=== PATIENT | female | born 1980 | race Caucasian/White ===

== ENCOUNTER 2016-09-15 18:56 | Emergency (ER) | payer OTHER ==
[~2016-09-15] VITALS: Ht 160 cm; Wt 127.0 kg
[~2016-09-15 18:56] MED LIST: IBUP-232 PO; LISI-586 PO
[2016-09-15 18:58] VITALS: BP 178/98; PULSE 108; RESP 14; TEMP 98; O2SAT 96
[2016-09-15] MEDS ORDERED: LISI20TA3 PO (19:33)
[2016-09-15] MEDS ORDERED: IBUP200T2 PO (19:33)
[2016-09-15] MEDS ORDERED: AMOX500T PO (19:38)
--- NOTE | 2016-09-15 19:42 | PD ---
HPI Chief Complaint: Oral / Dental Pain or Problem Time Seen by Provider: 19:39 Travel History International Travel<30 days: No Contact w/Intl Traveler<30days: No Traveled to known affect area: No History of Present Illness HPI 36-year-old white female presents to emergency Department with complaints of right upper maxillary dental pain. She states that she has had pain now for the past 2 days. She is taking ibuprofen without relief. She has had no fever chills. No ear pain or sore throat. No shortness of breath or wheezing. No vomiting. Some nausea. PFSH Past Medical History Narrative Medical Hypertension. Denies diabetes Cardiovascular Problems: Yes (HTN) Diminished Hearing: No GERD: Yes Hypertension: Yes Immunizations Current: Yes Tetanus Vaccination: < 5 Years Influenza Vaccination: No ?: Not LMP: A YR AGO Past Surgical History Section: Yes (2011) Social History Alcohol Use: No Tobacco Use: No Substance Use: No Allergies-Medications (Allergen,Severity, Reaction): Coded Allergies: No Known Allergies (Unverified , 09/15/16) Reported Meds & Prescriptions Reported Meds & Active Scripts Active Amoxicillin 500 Mg Tab 1,000 Mg PO BID Reported Ibuprofen 200 Mg Tab 200 Mg PO Q4H PRN Lisinopril-Hctz 20-25 Mg Tab 1 Tab PO DAILY Review of Systems Except as stated in HPI: all other systems reviewed are Neg Physical Exam Narrative GENERAL: Well-developed, well-nourished in no acute distress. Nontoxic appearing. HEAD: Normocephalic, atraumatic. EYES: Pupils equal round and reactive. Extraocular motions intact. No scleral icterus. No injection or drainage. ENT: TMs clear without erythema. The external auditory canals clear. Nose: clear . Posterior pharynx is pink and moist. No tonsillar edema or exudate. Uvula midline. Airway patent. The patient has diffuse periodontal disease. She has multiple dental caries. She points to right upper maxilla and the area of tooth #1, 2, 3. These are decayed to the gumline. There is gingival erythema and edema. Tenderness to percussion. No facial cellulitis. NECK: Trachea midline.Supple, nontender, moves head freely. No central bony tenderness or spasm. CARDIOVASCULAR: Regular rate and rhythm without murmurs, gallops, or rubs. RESPIRATORY: Clear to auscultation. Breath sounds equal bilaterally. No wheezes , rales, or rhonchi. GASTROINTESTINAL: Abdomen soft, non-tender, nondistended. No hepato-splenomegaly , or palpable masses. No guarding. EXTREMITIES: No clubbing, cyanosis, or edema. No joint tenderness, effusion, or edema noted. BACK: Nontender without deformity or crepitance. No flank tenderness. Data Data Last Documented VS Vital Signs Date Time Temp Pulse Resp B/P Pulse Ox O2 Delivery O2 Flow Rate FiO2 09/15/16 18:58 98.0 108 14 178/98 96 Room Air MDM Medical Decision Making Medical Screen Exam Complete: Yes Emergency Medical Condition: Yes Medical Record Reviewed: Yes Differential Diagnosis MDM: Moderate Differential diagnoses: Dental abscess, dental caries, osteitis, cellulitis Narrative Course Patient's given amoxicillin 500 and Lortab 5 milligram by mouth. This is dentalgia, dental caries Diagnosis Primary Impression: Dentalgia Additional Impression: Dental caries Patient Instructions: Narcotic given in the ED, General Instructions Additional Instructions: Rest. Saltwater gargles. [place] oil on cotton balls. 3 Advil every 6 hours. Amoxicillin. follow-up with a dentist as soon as possible. And return to the ER if any problems. Med/Other Pt SpecificInfo: Prescription(s) given Scripts Amoxicillin 500 Mg Tab1,000 Mg PO BID #40 TAB Prov:Abiodun Alberto MD 09/15/16 Disposition: 01 DISCHARGE HOME Condition: Stable Amor Salcedo Sep 15, 2016 19:42
[2016-09-15] MEDS ORDERED: AMOXICILLIN (TRIHYDRATE) 500 MG CAP PO ONE (19:45)
[2016-09-15] MEDS ORDERED: ACETAMINOPHEN/HYDROcodone 325 MG/5 MG TAB PO ONE (19:45)
== END 2016-09-15 20:50 | disposition home or self-care (01) ==
LOC: NEPB 18:56
DX: K08.89 Other specified disorders of teeth and supporting structures (principal); K02.9 Dental caries, unspecified
CPT/HCPCS: 99282

== ENCOUNTER 2017-03-08 20:06 | Inpatient (IN) | payer OTHER ==
[~2017-03-08] VITALS: Ht 160 cm; Wt 149.8 kg
[~2017-03-08 20:06] MED LIST changes: +AMOX500T PO; -IBUP-232 PO; +IBUP200T2 PO; -LISI-586 PO; +LISI20TA3 PO; +ONDANSETRON HCL 4 MG/2 ML VIAL IV PUSH ONE; +PROPOFOL 200 MG/20 ML AMP IV ONE
[2017-03-08 20:09] VITALS: BP 141/92; PULSE 104; RESP 16; TEMP 99.4; O2SAT 94
--- NOTE | 2017-03-08 20:28 | PD ---
HPI Chief Complaint: Abdominal Pain Time Seen by Provider: 20:21 Travel History International Travel<30 days: No Contact w/Intl Traveler<30days: No Traveled to known affect area: No History of Present Illness HPI The patient was seen and examined in the presence of the nurse. This patient complains of right lower quadrant pain. Duration is 17 hours. Severity is moderate. She did have nausea and vomited up her lunch today. No alleviating factors. No diarrhea. Denies vaginal bleeding or discharge. Does not think she is but not preventing it. Only surgical history of the abdomen is . PFSH Past Medical History Cardiovascular Problems: Yes (HTN) Diminished Hearing: No GERD: Yes Hypertension: Yes Immunizations Current: Yes Tetanus Vaccination: > 5 Years Influenza Vaccination: No ?: Not LMP: 3 WEEKS Past Surgical History Section: Yes (2011) Social History Alcohol Use: No Tobacco Use: No Substance Use: No Allergies-Medications (Allergen,Severity, Reaction): Coded Allergies: No Known Allergies (Unverified , 03/08/17) Reported Meds & Prescriptions Reported Meds & Active Scripts Active Reported Lisinopril-Hctz 20-25 Mg Tab 1 Tab PO DAILY Review of Systems General / Constitutional: No: Fever Eyes: No: Visual changes HENT: No: Headaches Cardiovascular: No: Chest Pain or Discomfort Respiratory: No: Shortness of Breath Gastrointestinal: Positive: Nausea, Vomiting, Abdominal Pain Genitourinary: No: Dysuria Musculoskeletal: No: Pain Skin: No Rash Neurologic: No: Weakness Psychiatric: No: Depression Endocrine: No: Polydipsia Hematologic/Lymphatic: No: Easy Bruising Physical Exam Narrative GENERAL: Well-nourished, well-developed patient with right lower quadrant pain. SKIN: Focused skin assessment reveals no rash and nodules. Skin is Warm and dry. HEAD: Atraumatic. Normocephalic. EYES: Pupils equal and round. No scleral icterus. No injection or drainage. ENT: No nasal bleeding or discharge. Mucous membranes pink and moist. NECK: Trachea midline. No JVD. CARDIOVASCULAR: Regular rate and rhythm. No murmur appreciated. RESPIRATORY: No accessory muscle use. Clear to auscultation. Breath sounds equal bilaterally. GASTROINTESTINAL: Abdomen soft, right lower quadrant is tender without rebound or guarding, nondistended. Hepatic and splenic margins not palpable. MUSCULOSKELETAL: No obvious deformities. No clubbing. No cyanosis. No edema. NEUROLOGICAL: Awake and alert. No obvious cranial nerve deficits. Motor grossly within normal limits. Normal speech. PSYCHIATRIC: Appropriate mood and affect; insight and judgment normal. Pelvic: Data Data Last Documented VS Vital Signs Date Time Temp Pulse Resp B/P Pulse Ox O2 Delivery O2 Flow Rate FiO2 03/08/17 21:07 97 18 124/63 96 Room Air 03/08/17 20:09 99.4 Orders Basic Metabolic Panel (Bmp) (03/08/17 20:25) Complete Blood Count With Diff (03/08/17 20:25) Prothrombin Time / Inr (Pt) (03/08/17 20:25) Act Partial Throm Time (Ptt) (03/08/17 20:25) Urinalysis - C+S If Indicated (03/08/17 20:25) Iv Access Insert/Monitor (03/08/17 20:25) NPO (03/08/17 20:25) Sodium Chloride 0.9% Flush (Ns Flush) (03/08/17 20:30) Ed Urine Pregnancytest Poc (03/08/17 20:25) Ct Abd/Pel W Iv Contrast(Rout) (03/08/17 ) Iohexol 350 Inj (Omnipaque 350 Inj) (03/08/17 21:45) Piperacil-Tazo 3.375 Gm Premix (Zosyn 3. (03/08/17 22:15) Admit Order (Ed Use Only) (03/08/17 22:27) Labs Laboratory Tests Test 03/08/17 03/08/17 20:39 20:42 White Blood Count 14.5 TH/MM3 Red Blood Count 4.92 MIL/MM3 Hemoglobin 12.6 GM/DL Hematocrit 39.3 % Mean Corpuscular Volume 79.9 FL Mean Corpuscular Hemoglobin 25.7 PG Mean Corpuscular Hemoglobin 32.2 % Concent Red Cell Distribution Width 15.0 % Platelet Count 275 TH/MM3 Mean Platelet Volume 9.6 FL Neutrophils (%) (Auto) 83.2 % Lymphocytes (%) (Auto) 12.0 % Monocytes (%) (Auto) 3.5 % Eosinophils (%) (Auto) 1.0 % Basophils (%) (Auto) 0.3 % Neutrophils # (Auto) 12.2 TH/MM3 Lymphocytes # (Auto) 1.7 TH/MM3 Monocytes # (Auto) 0.5 TH/MM3 Eosinophils # (Auto) 0.1 TH/MM3 Basophils # (Auto) 0.0 TH/MM3 CBC Comment DIFF FINAL Differential Comment Prothrombin Time 10.4 SEC Prothromb Time International 0.9 RATIO Ratio Activated Partial 27.8 SEC Thromboplast Time Sodium Level 140 MEQ/L Potassium Level 3.8 MEQ/L Chloride Level 100 MEQ/L Carbon Dioxide Level 29.4 MEQ/L Anion Gap 11 MEQ/L Blood Urea Nitrogen 9 MG/DL Creatinine 0.71 MG/DL Estimat Glomerular Filtration 94 ML/MIN Rate Random Glucose 138 MG/DL Calcium Level 9.4 MG/DL Urine Color YELLOW Urine Turbidity CLEAR Urine pH 6.0 Urine Specific [place] 1.025 Urine Protein 100 mg/dL Urine Glucose (UA) NEG mg/dL Urine Ketones NEG mg/dL Urine Occult Blood NEG Urine Nitrite NEG Urine Bilirubin NEG Urine Leukocyte Esterase NEG Urine WBC 0-2 /hpf Urine Squamous Epithelial 0-5 /hpf Cells Microscopic Urinalysis Comment CULT NOT INDICATED MDM Medical Decision Making Medical Screen Exam Complete: Yes Emergency Medical Condition: Yes Medical Record Reviewed: Yes Differential Diagnosis Appendicitis, ectopic , PID Narrative Course I have reviewed the patient's electronic medical record. IV placed CBC shows leukocytosis of 14,000 Metabolic profile is normal Coagulation studies are normal Urine is negative CT of abdomen and pelvis shows acute appendicitis I reviewed in detail with general surgeon Dr. Aguirre He is calling a team and to do an appendectomy and will admit her For that I gave her dose of Zosyn Diagnosis Primary Impression: Acute appendicitis Qualified Code: K35.3 - Acute appendicitis with localized peritonitis Admitting Information Admitting Physician Requests: Admit Mark Galicia MD Mar 08, 2017 20:28
[2017-03-08] MEDS ORDERED: SODIUM CHLORIDE 0.9% FLUSH 10 ML FLUSH IV FLUSH PRN (20:30)
[2017-03-08 20:50] LABS: BLOOD, URINE NEG (NEG); GLUCOSE,URINE NEG (NEG); KETONE, URINE NEG (NEG); NITRITE,URINE NEG (NEG)
[2017-03-08 20:57] LABS: POTASSIUM 3.8 MEQ/L (3.5-5.1)
[2017-03-08 21:00] LABS: BICARBONATE 29.4 MEQ/L (21.0-32.0)
[2017-03-08 21:02] LABS: URINE COLOR YELLOW (YELLW/STRAW)
[2017-03-08 21:03] LABS: APTT (PATIENT) 27.8 SEC (24.3-30.1); INTERNATIONAL NORMALIZED RATIO 0.9 RATIO; PROTHROMBIN TIME - PATIENT 10.4 SEC (9.8-11.6)
[2017-03-08 21:03] LABS: COMMENT (UR) CULT NOT INDICATED; CULTURE IF INDICATED CULT NOT INDICATED; SQUAMOUS EPITHELIAL CELL URINE 0-5 /hpf (0-5); WBC, URINE 0-2 /hpf (0-5)
[2017-03-08 21:07] VITALS: BP 124/63; PULSE 97; RESP 18; O2SAT 96
[2017-03-08 21:07] LABS: AUTOMATED NEUTROPHIL # 12.2 TH/MM3 (1.8-7.7); BASOPHIL % 0.3 % (0.0-2.0); EOSINOPHIL # 0.1 TH/MM3 (0-0.4); HEMATOCRIT 39.3 % (35.0-46.0); LYMPHOCYTE # 1.7 TH/MM3 (1.0-4.8); MEAN CELL VOLUME 79.9 FL (80.0-100.0); MEAN CORPUSCULAR HEMOGLOBIN 25.7 PG (27.0-34.0); MEAN CORPUSCULAR HGB CONC 32.2 % (32.0-36.0); MONO % 3.5 % (0.0-8.0); NEUT % 83.2 % (16.0-70.0); PLATELET COUNT 275 TH/MM3 (150-450); RED BLOOD COUNT 4.92 MIL/MM3 (4.00-5.30); WHITE BLOOD COUNT 14.5 TH/MM3 (4.0-11.0)
[2017-03-08 21:17] LABS: HEMO FLAGS DIFF FINAL
[2017-03-08] MEDS ORDERED: IOHEXOL 350 MG/ML 10 ML VIAL (for RAD DIAG) IV ONE (21:45)
--- NOTE | 2017-03-08 22:02 | RADRPT ---
EXAM DATE/TIME: 03/08/2017 21:23 [facility] COMPARISON: CT ABDOMEN & PELVIS W CONTRAST, May 29, 2015, 20:35. INDICATIONS : Right lower quadrant pain. Evaluate for appendicitis. IV CONTRAST: 100 cc Omnipaque 350 (iohexol) IV ORAL CONTRAST: No oral contrast ingested. RADIATION DOSE: 22.35 CTDIvol (mGy) MEDICAL HISTORY : Hypertension. Gastroesophageal reflux disease. SURGICAL HISTORY : section. ENCOUNTER: Initial ACUITY: 2 days PAIN SCALE: 8/10 LOCATION: Right lower quadrant TECHNIQUE: Volumetric scanning of the abdomen and pelvis was performed. Using automated exposure control and ad justment of the mA and/or kV according to patient size, radiation dose was kept as low as reasonably achievable to obtain optimal diagnostic quality images. DICOM format image data is available electro nically for review and comparison. FINDINGS: LOWER LUNGS: The visualized lower lungs are clear. LIVER: Diffuse fatty change. No focal lesions. No calcified gallstones. SPLEEN: Normal size without lesion. PANCREAS: Within normal limits. KIDNEYS: Normal in size and shape. There is no mass, stone or hydronephrosis. ADRENAL GLANDS: Within normal limits. VASCULAR: There is no aortic aneurysm. BOWEL/MESENTERY: No dilated loops of small or large bowel. There is induration about the appendix which extends infer ior to the cecum in the right lower quadrant. The appendix is also enlarged and measures 13 mm. The re is some thickening of the lateral conal fascia, but no free fluid. ABDOMINAL WALL: Within normal limits. RETROPERITONEUM: There is no lymphadenopathy. BLADDER: No wall thickening or mass. REPRODUCTIVE: The uterus is anteverted. INGUINAL: There is no lymphadenopathy or hernia. MUSCULOSKELETAL: Within normal limits for patient age. CONCLUSION: 1. Findings are suspicious for appendicitis with an enlarged appendix and periappendiceal fatty indur ation. 2. Steatosis of the liver. Logan Finch MD on March 08, 2017 at 21:56 Board Certified Radiologist. This report was verified electronically.
[2017-03-08] MEDS ORDERED: PIPERACIL-TAZO 3.375 GM PREMIX 50 ML IV ONE (22:15)
[2017-03-08] MEDS ORDERED: KETOROLAC TROMETHAMINE 30 MG/ML (IVP) VIAL IV PUSH ONE (22:30)
[2017-03-08 23:30] VITALS: BP 132/70; PULSE 92; RESP 18; O2SAT 96
[2017-03-09] VITALS (8 sets, daily range): BP systolic 132–188; BP diastolic 70–93; PULSE 83–95; RESP 18; TEMP 96.5–97.9; O2SAT 93–97
[2017-03-09] MEDS ORDERED: BUPIVACAINE/EPINEPHRINE 0.5% 50 ML VIAL ONE (00:59)
[2017-03-09] MEDS ORDERED: SUGAMMADEX SODIUM 200 MG/2 ML VIAL IV PUSH ONE ×2 (02:02)
[2017-03-09] MEDS: SODIUM CHLOR 0.9% 1000 ML INJ 1,000 ML IV SCH ×2 (02:08→12:08)
[2017-03-09] MEDS ORDERED: Post-op Orders (for Pharmacy) MISC XX ONE (02:15)
[2017-03-09] MEDS ORDERED: SODIUM CHLORIDE 0.9% FLUSH 10 ML FLUSH IV FLUSH PRN (02:15)
[2017-03-09] MEDS ORDERED: NALOXONE HCL 0.4 MG/ML AMP IV PRN (02:15)
[2017-03-09] MEDS ORDERED: DO NOT ADM ANY ANTICOAGULANT DRUGS PRN (02:22)
[2017-03-09] MEDS: ONDANSETRON HCL 4 MG/2 ML VIAL IV PRN ×2 (03:24→12:10)
[2017-03-09] MEDS: MORPHINE SULFATE 4 MG/ML INJ IV PRN ×2 (04:27→12:04)
[2017-03-09] MEDS: PIPERACIL-TAZO 3.375 GM PREMIX 50 ML IV SCH ×2 (04:57→13:53)
[2017-03-09] MEDS ORDERED: PANTOPRAZOLE SOD 40 MG DELAYED RELEASE TAB PO SCH (06:00)
[2017-03-09] MEDS ORDERED: SODIUM CHLORIDE 0.9% FLUSH 10 ML FLUSH IV FLUSH SCH (09:00)
[2017-03-09] MEDS ORDERED: DOCUSATE SODIUM 100 MG CAP PO SCH (09:00)
[2017-03-09] MEDS ORDERED: ACETAMINOPHEN 1000 MG/100 ML VIAL IV ONE (12:00)
[2017-03-09] MEDS: oxyCODONE/ACETAMINOPHEN 5 MG/325 MG TAB PO PRN ×2 (13:51→18:15)
--- NOTE | 2017-03-09 18:30 | PD.CAR.PN ---
CVT Progress Note Subjective/Hospital Course: Post lap appendectomy. Incisions clean dry Abdomen soft DC today FU with me 2 weeks Objective: Vital Signs Date Time Temp Pulse Resp B/P Pulse Ox O2 Delivery O2 Flow Rate FiO2 03/09/17 18:02 96.5 03/09/17 17:54 94 Nasal Cannula 2.00 03/09/17 11:46 97.5 91 18 154/70 94 03/09/17 08:02 96.8 89 18 134/77 97 03/09/17 07:54 97 Nasal Cannula 2.00 03/09/17 07:20 Nasal Cannula 3.00 03/09/17 04:45 132/93 03/09/17 04:00 97.1 83 18 188/91 95 03/09/17 03:20 Nasal Cannula 3.00 03/09/17 03:00 98.0 80 16 165/62 96 Nasal Cannula 3 03/09/17 02:44 87 14 172/79 96 Nasal Cannula 3 03/09/17 02:30 91 18 178/81 99 Simple Mask 10 03/09/17 02:22 99.3 99 14 148/72 96 Simple Mask 10 03/08/17 23:54 18 03/08/17 23:30 92 18 132/70 96 Room Air 03/08/17 21:07 97 18 124/63 96 Room Air 03/08/17 20:09 99.4 104 16 141/92 94 Result Diagram: 03/08/17203803/08/172038 Domenica Vallecillo MD Mar 09, 2017 18:30
[2017-03-09] MEDS ORDERED: OXYC1TAB63 PO (18:33)
--- NOTE | 2017-03-09 20:00 | MP ---
cc: FRANCISCO LEE MD DATE OF SURGERY 03/09/2017 PREOPERATIVE DIAGNOSIS Acute appendicitis. POSTOPERATIVE DIAGNOSIS Acute appendicitis. SURGEON Lio Lee MD ANESTHESIA General. BLOOD LOSS 30 mL. PROCEDURE IN DETAIL The patient was prepped and draped usual fashion and a supraumbilical incision made and balloon port placed under direct vision. Abdomen insufflated with CO2 and the patient was placed in Trendelenburg with a tilt. The 30 degree camera inserted and abdomen explored in its quadrants. Appendix is in pelvic position, inflamed but not perforated. The suprapubic port is now placed 5 mm and then again abdomen visualized. There are adhesions in the left lower quadrant preventing placement of this port safely. Therefore, another port is placed in the right lower quadrant just distal to the appendix and, through this, a camera is inserted allowing instrument introduction through the umbilical port taking down the adhesions under direct vision with cautery and the scissors. Once this was completed, the final port is placed in the left lower quadrant and then appendix was grasped, elevated, opening is created at base of the appendix between the mesoappendix and then an Endo RICK white line staple fired across the mesentery and then across the appendix. Appendix was placed in EndoCatch bag and delivered through subumbilical incision. Area was irrigated with saline. Meticulous hemostasis assured and instrument is withdrawn. Incision is closed with 0 Vicryl and 4-0 Monocryl. The patient tolerated the procedure well. Francisco WASSERMAN/ /2:19 AM /7:56 PM
== END 2017-03-09 19:21 | disposition home or self-care (01) | DRG 343 ==
LOC: PHED 20:06 → UNDOADMIN 22:27 → PHEDA 22:27 → HPAC 03-09 00:40 → N06A 03-09 03:20
PROVIDERS: ADMIT Surgery; ATTEND Surgery
PROC: 0DTJ4ZZ Resection of Appendix, Percutaneous Endoscopic Approach (ICD-10-PCS; principal; 2017-03-08)
DX: K35.80 Unspecified acute appendicitis (principal)
CPT/HCPCS: 74177; 80048; 81001; 84703; 85025; 85610; 85730; 88304; 94150; J0131; J1885; J2270; J2405; J2543; J3010; J7030; Q9967

== ENCOUNTER 2017-06-15 17:48 | Emergency (ER) | payer OTHER ==
[~2017-06-15] VITALS: Ht 160 cm; Wt 155.2 kg
[~2017-06-15 17:48] MED LIST changes: -AMOX500T PO; -IBUP200T2 PO; -ONDANSETRON HCL 4 MG/2 ML VIAL IV PUSH ONE; +OXYC1TAB63 PO; -PROPOFOL 200 MG/20 ML AMP IV ONE
[2017-06-15 17:59] VITALS: BP 176/101; PULSE 96; RESP 16; TEMP 99.1; O2SAT 97
[2017-06-15 20:12] LABS: BLOOD, URINE NEG (NEG); GLUCOSE,URINE NEG (NEG); KETONE, URINE TRACE mg/dL (NEG); NITRITE,URINE NEG (NEG)
[2017-06-15 20:19] LABS: URINE COLOR YELLOW (YELLW/STRAW)
[2017-06-15 20:20] LABS: COMMENT (UR) CULT NOT INDICATED; CULTURE IF INDICATED CULT NOT INDICATED; RBC, URINE 0-3 /hpf (0-3); WBC, URINE 0-2 /hpf (0-5)
--- NOTE | 2017-06-15 20:22 | PD ---
HPI . Low back pain Chief Complaint: Complaint Time Seen by Provider: 20:14 Travel History International Travel<30 days: No Contact w/Intl Traveler<30days: No Traveled to known affect area: No History of Present Illness HPI Patient presents with a chief complaint of low back pain. Onset was 2 days ago. Pain is exacerbated by going from the lying to the sitting position. She rates the pain 10/10. She reports a subjective fever also for the last couple of days and difficulty urinating today. She describes frequency and urgency but denies dysuria or hematuria. PFSH Past Medical History Cancer: No Cardiovascular Problems: Yes (HTN) Diminished Hearing: No Endocrine: No Gastrointestinal Disorders: Yes GERD: Yes Genitourinary: Yes Hypertension: Yes Immune Disorder: No Musculoskeletal: No Neurologic: No Reproductive: No Respiratory: No Immunizations Current: Yes Tetanus Vaccination: < 5 Years Influenza Vaccination: No ?: Not Past Surgical History Appendectomy: Yes (03/2017) Section: Yes (2011) Gynecologic Surgery: Yes () Social History Alcohol Use: No Tobacco Use: No Substance Use: No Allergies-Medications (Allergen,Severity, Reaction): Coded Allergies: No Known Allergies (Unverified , 06/15/17) Reported Meds & Prescriptions Reported Meds & Active Scripts Active Reported Lisinopril-Hctz 20-25 Mg Tab 1 Tab PO DAILY Review of Systems Except as stated in HPI: all other systems reviewed are Neg General / Constitutional: Positive: Fever, Chills Gastrointestinal: Positive: Nausea Genitourinary: Positive: Urgency, Frequency, No: Dysuria, Hematuria Physical Exam Narrative GENERAL: This patient is markedly obese. She weighs 155 kg. SKIN: Warm and dry. Intact. HEAD: Normocephalic/atraumatic. EYES: Pupils are equal. Extraocular movements are intact. NECK: Full range of motion with no apparent pain. CARDIOVASCULAR: Regular rate and rhythm. RESPIRATORY: Nonlabored. MUSCULOSKELETAL: Tender in the lower lumbar/upper sacral area of her back. No CVA tenderness. NEUROLOGICAL: Nonfocal. PSYCHIATRIC: Appropriate mood and affect. Data Data Last Documented VS Vital Signs Date Time Temp Pulse Resp B/P (MAP) Pulse Ox O2 Delivery O2 Flow Rate FiO2 06/15/17 17:59 99.1 96 16 176/101 (126) 97 Orders Orders Urinalysis - C+S If Indicated (06/15/17 19:29) Ed Urine Pregnancytest Poc (06/15/17 19:29) Ketorolac Inj (Toradol Inj) (06/15/17 20:30) Labs Laboratory Tests Test 06/15/17 20:00 Urine Color YELLOW Urine Turbidity CLEAR Urine pH 7.0 Urine Specific [place] 1.026 Urine Protein NEG mg/dL Urine Glucose (UA) NEG mg/dL Urine Ketones TRACE mg/dL Urine Occult Blood NEG Urine Nitrite NEG Urine Bilirubin NEG Urine Leukocyte Esterase NEG Urine RBC 0-3 /hpf Urine WBC 0-2 /hpf Urine Squamous Epithelial Cells 6-8 /hpf Microscopic Urinalysis Comment CULT NOT INDICATED MDM Medical Decision Making Medical Screen Exam Complete: Yes Emergency Medical Condition: Yes Differential Diagnosis Differential diagnosis includes but is not limited to muscular low back pain, DDD, spinal stenosis, epidural abscess, sciatica, kidney infection or stone. Narrative Course This patient presents with the chief complaint of low back pain which is not in the CVA area. She is also complaining with some urinary symptoms. UA and test are negative. Her back pain and urinary symptoms unrelated. She'll be discharged with prescriptions for Relafen and Flexeril. Diagnosis Primary Impression: Low back pain Qualified Codes: M54.5 - Low back pain Additional Impression: Urinary urgency Patient Instructions: Acute Low Back Pain (DC), General Instructions Med/Other Pt SpecificInfo: Prescription(s) given Scripts Cyclobenzaprine (Flexeril) 10 Mg Tab 10 MG PO TID for Muscle Spasm, #30 TAB 0 Refills Prov: Doretha Pablo MD 06/15/17 Nabumetone (Nabumetone) 500 Mg Tab 500 MG PO BID for Pain-Inflammation, #60 TAB 0 Refills Prov: Doretha Pablo MD 06/15/17 Disposition: 01 DISCHARGE HOME Condition: Stable Doretha Palbo MD Jun 15, 2017 20:22
[2017-06-15] MEDS ORDERED: NABU1TAB37 PO (20:25)
[2017-06-15] MEDS ORDERED: CYCL1TAB29 PO (20:25)
[2017-06-15] MEDS ORDERED: KETOROLAC TROMETHAMINE 60 MG/2 ML (IM) VIAL IM ONE (20:30)
[2017-06-15 20:41] VITALS: BP 8/92
[2017-06-15 20:53] VITALS: RESP 18
== END 2017-06-15 20:41 | disposition home or self-care (01) ==
LOC: PHED 17:48
DX: M54.5 Low back pain (principal); R39.15 Urgency of urination; K21.9 Gastro-esophageal reflux disease without esophagitis; I10 Essential (primary) hypertension
CPT/HCPCS: 81001; 84703; 96372; 99284; J1885

== ENCOUNTER 2017-07-07 16:15 | Emergency (ER) | payer OTHER ==
[~2017-07-07] VITALS: Ht 160 cm; Wt 153.0 kg
[~2017-07-07 16:15] MED LIST changes: +CYCL10TA PO; +NABU1TAB37 PO; -OXYC1TAB63 PO
[2017-07-07 16:20] VITALS: BP 227/113; PULSE 113; RESP 20; TEMP 100.4; O2SAT 91
[2017-07-07 16:31] VITALS: BP 209/101; PULSE 99; RESP 17; O2SAT 95
[2017-07-07] MEDS ORDERED: SODIUM CHLOR 0.9% 1000 ML INJ 1,000 ML IV SCH (16:43)
[2017-07-07] MEDS ORDERED: methylPREDNISolone SOD SUCC 125 MG/2 ML VIAL IV PUSH ONE (16:45)
[2017-07-07] MEDS ORDERED: SODIUM CHLORIDE 0.9% FLUSH 10 ML FLUSH IVF PRN (16:45)
[2017-07-07] MEDS ORDERED: cefTRIAXone INJ 2,000 MG in SODIUM CHLORIDE 0.9% INJ 100 ML IV STA (16:50)
[2017-07-07] MEDS ORDERED: AZITHROMYCIN INJ 500 MG in SODIUM CHLOR 0.9% 250 ML INJ 250 ML IV STA (16:50)
--- NOTE | 2017-07-07 16:52 | PD ---
HPI Chief Complaint: Cold / Flu Symptoms Time Seen by Provider: 16:38 Travel History International Travel<30 days: No Contact w/Intl Traveler<30days: No Traveled to known affect area: No History of Present Illness HPI Patient is a 37-year-old female who presents to emergency room for evaluation of productive cough and sinus congestion which has been ongoing for the past 3 days. Patient reports that her 5-year-old daughter was recently treated for bronchitis, reports that after her daughter felt better, she began to have her symptoms. Patient denies any fevers, reports chills. Patient reports that when she coughs, she is bringing up thick green mucous. Reports that her chest feels congested, reports that her chest feels sore from coughing so much. Denies smoking history. Patient has not received the influenza vaccine this year. Patient with no recent travels or trips. Patient does have history of hypertension and does take lisinopril for this. Patient with no headache or dizziness at this time. PFSH Past Medical History Cancer: No Cardiovascular Problems: Yes (HTN) Diminished Hearing: No Endocrine: No Gastrointestinal Disorders: Yes GERD: Yes Genitourinary: Yes Hypertension: Yes Immune Disorder: No Musculoskeletal: No Neurologic: No Reproductive: No Respiratory: No Immunizations Current: Yes ?: Not Past Surgical History Appendectomy: Yes (03/2017) Section: Yes (2011) Gynecologic Surgery: Yes () Social History Alcohol Use: No Tobacco Use: No Substance Use: No Allergies-Medications (Allergen,Severity, Reaction): Coded Allergies: No Known Allergies (Unverified Adverse Reaction, Unknown, 07/07/17) Reported Meds & Prescriptions Reported Meds & Active Scripts Active Flexeril (Cyclobenzaprine HCl) 10 Mg Tab 10 Mg PO TID Nabumetone 500 Mg Tab 500 Mg PO BID Reported Lisinopril-Hctz 20-25 Mg Tab 1 Tab PO DAILY Review of Systems General / Constitutional: Positive: Chills, No: Fever Eyes: No: Visual changes HENT: Positive: Sore Throat, No: Headaches, Neck Stiffness, Neck Pain Cardiovascular: No: Chest Pain or Discomfort Respiratory: Positive: Cough, Shortness of Breath, Wheezing Gastrointestinal: No: Nausea, Vomiting, Abdominal Pain Genitourinary: No: Dysuria Musculoskeletal: Positive: Myalgias, No: Arthralgias, Pain Skin: No Rash Neurologic: No: Weakness, Dizziness, Headache Psychiatric: No: Depression Endocrine: No: Polydipsia Hematologic/Lymphatic: No: Easy Bruising Physical Exam Narrative GENERAL: Moderate distress SKIN: Focused skin assessment warm/dry. HEAD: Atraumatic. Normocephalic. EYES: Pupils equal and round. No scleral icterus. No injection or drainage. ENT: No nasal bleeding or discharge. Mucous membranes pink and moist. NECK: Trachea midline. No JVD. CARDIOVASCULAR: Tachycardia. No murmur appreciated. RESPIRATORY: No accessory muscle use. Increased scattered expiratory wheezing on exam. Breath sounds equal bilaterally. GASTROINTESTINAL: Abdomen soft, non-tender, nondistended. Hepatic and splenic margins not palpable. MUSCULOSKELETAL: No obvious deformities. No clubbing. No cyanosis. No edema. NEUROLOGICAL: Awake and alert. No obvious cranial nerve deficits. Motor grossly within normal limits. Normal speech. PSYCHIATRIC: Appropriate mood and affect; insight and judgment normal. Data Data Last Documented VS Vital Signs Date Time Temp Pulse Resp B/P (MAP) Pulse Ox O2 Delivery O2 Flow Rate FiO2 07/07/17 18:33 99.0 111 18 136/70 (92) 94 Room Air Orders Orders Basic Metabolic Panel (Bmp) (07/07/17 16:43) Complete Blood Count With Diff (07/07/17 16:43) Influenzae A/B Antigen (07/07/17 16:43) Urinalysis - C+S If Indicated (07/07/17 16:43) Chest, Single Ap (07/07/17 16:43) Ecg Monitoring (07/07/17 16:43) Iv Access Insert/Monitor (07/07/17 16:43) Oximetry (07/07/17 16:43) Sodium Chlor 0.9% 1000 Ml Inj (Ns 1000 M (07/07/17 16:43) Sodium Chloride 0.9% Flush (Ns Flush) (07/07/17 16:45) Albuterol-Ipratropium Neb (Duoneb Neb) (07/07/17 16:45) Methylprednisolone So Succ Inj (Solumedr (07/07/17 16:45) Ed Urine Pregnancytest Poc (07/07/17 16:43) Blood Culture (07/07/17 16:50) Ceftriaxone Inj (Rocephin Inj) (07/07/17 16:50) Azithromycin Inj (Zithromax Inj) (07/07/17 16:50) Acetaminophen (Tylenol) (07/07/17 17:30) Labs Laboratory Tests Test 07/07/17 17:31 White Blood Count 6.0 TH/MM3 Red Blood Count 4.89 MIL/MM3 Hemoglobin 12.5 GM/DL Hematocrit 39.6 % Mean Corpuscular Volume 80.9 FL Mean Corpuscular Hemoglobin 25.6 PG Mean Corpuscular Hemoglobin Concent 31.6 % Red Cell Distribution Width 15.4 % Platelet Count 235 TH/MM3 Mean Platelet Volume 8.7 FL Neutrophils (%) (Auto) 61.3 % Lymphocytes (%) (Auto) 29.1 % Monocytes (%) (Auto) 7.0 % Eosinophils (%) (Auto) 1.8 % Basophils (%) (Auto) 0.8 % Neutrophils # (Auto) 3.8 TH/MM3 Lymphocytes # (Auto) 1.7 TH/MM3 Monocytes # (Auto) 0.4 TH/MM3 Eosinophils # (Auto) 0.1 TH/MM3 Basophils # (Auto) 0.0 TH/MM3 CBC Comment DIFF FINAL Differential Comment Blood Urea Nitrogen 8 MG/DL Creatinine 0.61 MG/DL Random Glucose 101 MG/DL Calcium Level 8.8 MG/DL Sodium Level 138 MEQ/L Potassium Level 3.6 MEQ/L Chloride Level 99 MEQ/L Carbon Dioxide Level 31.3 MEQ/L Anion Gap 8 MEQ/L Estimat Glomerular Filtration Rate 112 ML/MIN MDM Medical Decision Making Medical Screen Exam Complete: Yes Emergency Medical Condition: Yes Medical Record Reviewed: Yes Interpretation(s) Vital Signs Date Time Temp Pulse Resp B/P (MAP) Pulse Ox O2 Delivery O2 Flow Rate FiO2 07/07/17 16:31 99 17 209/101 (137) 95 Room Air 07/07/17 16:20 100.4 113 20 227/113 (151) 91 Differential Diagnosis Acute bronchitis, viral syndrome, pneumonia, sinusitis Narrative Course 37-year-old female who presents to emergency room with 3 days of productive cough, congestion and shortness of breath. During the course of the patients emergency department visit, the patients history, examination, and differential diagnosis were reviewed with the patient. The patient was placed on a trailhead construction worker with oximetry and frequent blood pressure monitoring. The patient had 20 gauge IV access obtained and blood work sent for analysis. The patient was initially provided IV fluids, IV Solu-Medrol as well as DuoNeb treatments. IV antibiotics Rocephin and Azithromycin as patient was tachycardic and febrile. The patients laboratory studies were reviewed and remarkable for: CBC & BMP Diagram 07/07/17 17:31 Calcium Level 8.8 Microbiology Date/Time Source Procedure Growth Status 07/07/17 17:31 Blood Peripheral Aerobic Blood Culture Pending Received 07/07/17 17:31 Blood Peripheral Anaerobic Blood Culture Pending Received 07/07/17 17:25 Blood Peripheral Aerobic Blood Culture Pending Received 07/07/17 17:25 Blood Peripheral Anaerobic Blood Culture Pending Received 07/07/17 17:14 Nasal Washing Influenza Types A,B Antigen (ROSY) - Final NEGATIVE FOR FLU A AND B ANTIGEN.... Complete Radiology studies were reviewed and remarkable for: xray of chest: minimal nonspecific parenchymal changes right lung base Patient with most likely pneumonia given her symptoms. Patient was tachycardic and febrile upon arrival to the emergency room, blood cultures were obtained. Plan to discharge patient on antibiotics, she will follow up with all cultures from today, she will follow up with her primary care doctor and will return to ER as needed. Procedures Procedure Narrative Venous IV Access Using Ultrasound guidance, a 20 gauge IV was placed to left AC without any difficultly. IV line placed under ultrasound as RN unable to obtain IV access. Diagnosis Primary Impression: Pneumonia Qualified Codes: J18.1 - Lobar pneumonia, unspecified organism Patient Instructions: General Instructions Departure Forms: Tests/Procedures, Work Release Enter return to work date: Jul 12, 2017 Additional Instructions: Please provide patient with a copy of their lab work and studies at discharge* * Please follow up with your primary care doctor in 1-2 days Return to the ER if symptoms worsen or progress Return to the ER as needed Please take all medications as prescribed Please follow up with cultures from today Med/Other Pt SpecificInfo: Prescription(s) given Scripts Promethazine-Codeine Liq (Promethazine-Codeine Liq) 6.25-10 Mg/5 Ml Syrp 5 ML PO Q6H Y for COUGH AND/OR COLD SYMPTOMS for 7 Days, #140 ML 0 Refills Prov: Nicci Velez DO 07/07/17 Albuterol 8.5 GM Inh (Proair Hfa 8.5 GM Inh) 90 Mcg/Act Aer 2 PUFF INH Q4-6H Y for SHORTNESS OF BREATH, #1 INHALER 0 Refills 108 mcg/actuation Prov: Nicci Velez DO 07/07/17 Benzonatate (Tessalon Perles) 100 Mg Cap 100 MG PO TID Y for COUGH, #30 CAP 0 Refills Prov: Nicci Velez DO 07/07/17 Prednisone (Prednisone) 20 Mg Tab 20 MG PO BID for 5 Days, #10 TAB 0 Refills Prov: Nicci Velez DO 07/07/17 Azithromycin (Azithromycin) 500 Mg Tab 500 MG PO DAILY for Infection, #7 TAB 0 Refills Prov: Nicci Velez DO 07/07/17 Disposition: 01 DISCHARGE HOME Condition: Stable Nicci Velez DO Jul 07, 2017 16:52
[2017-07-07] MEDS: RESP: ALBUTEROL 2.5 MG/IPRATROPIUM 0.5 MG NEB (SCH) INH ×3 (16:53→17:19)
[2017-07-07] MEDS ORDERED: ACETAMINOPHEN 500 MG CPLT PO ONE (17:30)
[2017-07-07 17:38] VITALS: O2SAT 95
--- NOTE | 2017-07-07 17:42 | RADRPT ---
EXAM DATE/TIME: 07/07/2017 17:32 [facility] COMPARISON: No previous studies available for comparison. INDICATIONS : Cough, shortness of breath for 2 days MEDICAL HISTORY : None. SURGICAL HISTORY : None. ENCOUNTER: Initial ACUITY: 2 days PAIN SCORE: 3/10 LOCATION: Bilateral chest FINDINGS: Minimal parenchymal changes right base. Left lung is clear. The heart and pulmonary vascularity are normal. The portion of the bony skeleton visualized is unremarkable. CONCLUSION: Minimal nonspecific parenchymal changes right base. Correlation suggested. Adi Leung MD FACR on July 07, 2017 at 17:40 Board Certified Radiologist. This report was verified electronically.
[2017-07-07 17:44] LABS: AUTOMATED NEUTROPHIL # 3.8 TH/MM3 (1.8-7.7); BASOPHIL % 0.8 % (0.0-2.0); EOSINOPHIL # 0.1 TH/MM3 (0-0.4); EOSINOPHIL % 1.8 % (0.0-4.0); HEMATOCRIT 39.6 % (35.0-46.0); HEMO FLAGS DIFF FINAL; LYMPH % 29.1 % (9.0-44.0); LYMPHOCYTE # 1.7 TH/MM3 (1.0-4.8); MEAN CELL VOLUME 80.9 FL (80.0-100.0); MEAN CORPUSCULAR HEMOGLOBIN 25.6 PG (27.0-34.0); MEAN CORPUSCULAR HGB CONC 31.6 % (32.0-36.0); NEUT % 61.3 % (16.0-70.0); PLATELET COUNT 235 TH/MM3 (150-450); RED BLOOD COUNT 4.89 MIL/MM3 (4.00-5.30); RED CELL DISTRIBUTION WIDTH 15.4 % (11.6-17.2)
[2017-07-07 17:50] LABS: POTASSIUM 3.6 MEQ/L (3.5-5.1)
[2017-07-07 17:53] LABS: BICARBONATE 31.3 MEQ/L (21.0-32.0)
[2017-07-07 18:33] VITALS: BP 136/70; PULSE 111; RESP 18; TEMP 99; O2SAT 94
[2017-07-07] MEDS ORDERED: ALBUAER3 INH (18:48)
[2017-07-07] MEDS ORDERED: BENZ100 PO (18:48)
[2017-07-07] MEDS ORDERED: PRED20 PO (18:48)
[2017-07-07] MEDS ORDERED: AZIT500T2 PO (18:48)
[2017-07-07] MEDS ORDERED: PROM6.256 PO (18:48)
[2017-07-07 19:07] VITALS: BP 134/54; PULSE 101; RESP 20; TEMP 99.2; O2SAT 98
== END 2017-07-07 19:37 | disposition home or self-care (01) ==
LOC: PHED 16:15
DX: J18.1 Lobar pneumonia, unspecified organism (principal); I10 Essential (primary) hypertension
CPT/HCPCS: 71010; 80048; 85025; 87040; 87804; 94640; 94664; 96365; 96375; 99284; J0456; J0696; J2930; J7030; J7050